=== PATIENT | female | born 1995 | race Native Hawaiian/Other Pacific Islander ===

== ENCOUNTER 2018-08-11 19:18 | Emergency (ER) | payer OTHER ==
[~2018-08-11] VITALS: Ht 165.1 cm; Wt 63.5 kg
[2018-08-11 20:18] LABS: PLATELET COUNT 257 K/uL (152-353)
[2018-08-11 20:25] LABS: POTASSIUM 4.2 mmol/L (3.6-5.2)
[2018-08-11 21:28] VITALS: BP 122/88; TEMP 98.4
== END 2018-08-11 21:29 | disposition home or self-care (01) ==
LOC: ED 19:18
PROVIDERS: Family Medicine
DX: N39.0 Urinary tract infection, site not specified (principal); N76.0 Acute vaginitis
CPT/HCPCS: 36415; 80053; 80307; 81000; 81025; 85027; 87086; 87088; 87210; 87490; 87590; 99284

== ENCOUNTER 2018-09-16 17:58 | Emergency (ER) | payer OTHER ==
[~2018-09-16] VITALS: Ht 165.1 cm; Wt 65.8 kg
[2018-09-16 19:12] LABS: PLATELET COUNT 268 K/uL (152-353)
[2018-09-16 19:22] LABS: POTASSIUM 3.7 mmol/L (3.6-5.2); SODIUM 139 mmol/L (136-145)
[2018-09-16 20:25] VITALS: BP 139/72; TEMP 98.1
== END 2018-09-16 20:32 | disposition home or self-care (01) ==
LOC: ED 17:58
PROVIDERS: Emergency Medicine
DX: J20.9 Acute bronchitis, unspecified (principal); R07.89 Other chest pain; R06.02 Shortness of breath
CPT/HCPCS: 80053; 83735; 84484; 85027; 85379; 87040; 93005; 94664; 96372; 99283; J2930

== ENCOUNTER 2022-07-28 19:22 | Emergency (ER) | payer OTHER ==
[~2022-07-28] VITALS: Ht 165.1 cm; Wt 68.0 kg
[2022-07-28 19:25] VITALS: TEMP 98.2
[2022-07-28 20:00] LABS: PLATELET COUNT 212 K/uL (152-353)
[2022-07-28 20:05] LABS: POTASSIUM 4.3 mmol/L (3.6-5.2)
[2022-07-28 20:30] VITALS: BP 106/68
== END 2022-07-28 20:28 | disposition home or self-care (01) ==
LOC: ED 19:22
PROVIDERS: Family Medicine
DX: J30.9 Allergic rhinitis, unspecified (principal); J20.9 Acute bronchitis, unspecified
CPT/HCPCS: 36415; 80053; 81000; 81025; 85027; 87502; 93005; 99284

== ENCOUNTER 2022-08-20 20:18 | Emergency (ER) | payer OTHER ==
[~2022-08-20] VITALS: Ht 165.1 cm; Wt 65.8 kg
[2022-08-20 21:00] VITALS: BP 106/56; TEMP 98.3
== END 2022-08-20 21:00 | disposition home or self-care (01) ==
LOC: ED 20:18
DX: K64.8 Other hemorrhoids (principal); K59.00 Constipation, unspecified; K02.9 Dental caries, unspecified; F17.290 Nicotine dependence, other tobacco product, uncomplicated; F12.90 Cannabis use, unspecified, uncomplicated
CPT/HCPCS: 99281